=== PATIENT | female | born 1945 | race Two or more races ===

== ENCOUNTER 2021-03-03 10:49 | Emergency (ER) | payer OTHER ==
[~2021-03-03] VITALS: Ht 188 cm; Wt 86.6 kg
[2021-03-03] MEDS ORDERED: ELIQUIS5 MG PO (11:20)
[2021-03-03] MEDS ORDERED: DULOXETINE HCL60 MG PO (11:20)
[2021-03-03] MEDS ORDERED: MELATONIN3 M3 (11:20)
== END 2021-03-03 20:07 | disposition home or self-care (01) ==
LOC: ER 10:49
DX: N39.0 Urinary tract infection, site not specified (principal); R31.0 Gross hematuria

== ENCOUNTER 2021-03-27 11:59 | Emergency (ER) | payer OTHER ==
[~2021-03-27] VITALS: Ht 162.6 cm; Wt 99.8 kg
[~2021-03-27 11:59] MED LIST: DULOXETINE HCL60 MG PO; ELIQUIS5 MG PO; MELATONIN3 M3
[2021-03-27] MEDS ORDERED: OMEPRAZOLE20 MG PO (12:42)
[2021-03-27] MEDS ORDERED: MIRTAZAPINE7.5 MG PO (12:43)
[2021-03-27] MEDS ORDERED: FERROUS GLUCON PO (12:44)
[2021-03-27] MEDS ORDERED: KAPSPARGO SPRIN50 MG PO (12:46)
== END 2021-03-27 21:33 | disposition home or self-care (01) ==
LOC: ER 11:59
DX: R11.2 Nausea with vomiting, unspecified (principal); E86.0 Dehydration; N39.0 Urinary tract infection, site not specified; Z93.2 Ileostomy status

== ENCOUNTER 2021-03-29 11:15 | Inpatient (IN) | payer OTHER ==
[~2021-03-29] VITALS: Ht 165.1 cm; Wt 113.4 kg
[~2021-03-29 11:15] MED LIST changes: +FERROUS GLUCON PO; +KAPSPARGO SPRIN50 MG PO; +MIRTAZAPINE7.5 MG PO; +OMEPRAZOLE20 MG PO
--- NOTE | 2021-03-29 11:46 | NUR ---
SE RECIBE PTE LA CUAL LLEGA EN AMBULANCIA, ALERTA Y ORIENTADA EN PERSONA, EN COMPANIA DE FAMILIAR, EL CUAL REFIERE VOMITOS DESDE HOY EN LA MANANA COFFE GROUND. PTE LLEGA CON COLOSTOMIA. SE OBSERVA ABDOMEN DISTENDIDO. AL MOMENOT B/P NO AUDIBLES, SE NOTIFICA A DR GUSMAN QUIEN ORDENA COLOCARALA EN AREA DE CHEST PAIN, CONECTADA A MONITOR CARDIACO Y OXIMETRIA DE PULSO.
--- NOTE | 2021-03-29 12:46 | NUR ---
PACIENTE EVALUADA POR EL DR. GUSMAN QUIEN ORDENA [place] MEDICO. SE ORIENTA A FAMILAIR DE PACIENTE SOBRE [place] MEDICO Y SE EJECUTAN ORDENES MEDCIAS. SE UBICA EN UNIDAD DE CHEST PAIN, MISS Liang QUEZADA RN INSERTA NGT #[id number] POR FOSA NASAL RT, SE OBSERVA DRENANDO RESIDUAL GASTRICO COLOR COFFE BROWN. SE FIJA NGT Y SE COLOCA A SUCCION INTERMITENTE. SE CONECTA A TELEMETRIA. S/V 130/MIN, B/P 140/84 SAT O 2 EN 97%. PENDIENTE CONSULTA CON ANDRY VALVERDE.
[2021-04-14] MEDS ORDERED: PROTONIX40 MG PO (13:31)
[2021-04-14] MEDS ORDERED: INTESTINEX680 M1 PO (13:31)
[2021-04-14] MEDS ORDERED: INTEGRA PLUS C1 EACH PO (13:32)
[2021-04-14] MEDS ORDERED: AZO D-MANNOSE500 MG PO (13:32)
[2021-04-14] MEDS ORDERED: ELIQUIS2.5 MG PO (13:33)
[2021-04-14] MEDS ORDERED: KAPSPARGO SPRIN50 MG PO (13:34)
== END 2021-04-14 21:16 | disposition home or self-care (01) | DRG 389 ==
LOC: ER 11:15 → ICU 17:37 → MEDJ 04-11 19:18
PROVIDERS: ADMIT Internal Medicine; ATTEND Internal Medicine
PROC: BW21ZZZ Computerized Tomography (CT Scan) of Abdomen and Pelvis (ICD-10-PCS; 2021-03-29)
PROC: 4A033R1 Measurement of Arterial Saturation, Peripheral, Percutaneous Approach (ICD-10-PCS; 2021-03-29)
PROC: 05HY33Z Insertion of Infusion Device into Upper Vein, Percutaneous Approach (ICD-10-PCS; 2021-03-29)
PROC: B24BZZZ Ultrasonography of Heart with Aorta (ICD-10-PCS; 2021-03-29)
PROC: 30243K1 Transfusion of Nonautologous Frozen Plasma into Central Vein, Percutaneous Approach (ICD-10-PCS; principal; 2021-04-03)
PROC: 30243N1 Transfusion of Nonautologous Red Blood Cells into Central Vein, Percutaneous Approach (ICD-10-PCS; 2021-04-03)
PROC: B54DZZZ Ultrasonography of Bilateral Lower Extremity Veins (ICD-10-PCS; 2021-04-03)
PROC: 0DJ08ZZ Inspection of Upper Intestinal Tract, Via Natural or Artificial Opening Endoscopic (ICD-10-PCS; 2021-04-04)
PROC: BW2510Z Computerized Tomography (CT Scan) of Chest, Abdomen and Pelvis using Low Osmolar Contrast, Unenhanced and Enhanced (ICD-10-PCS; 2021-04-08)
PROC: B54PZZZ Ultrasonography of Bilateral Upper Extremity Veins (ICD-10-PCS; 2021-04-08)
PROC: 8E0ZXY6 Isolation (ICD-10-PCS; 2021-04-09)
DX: K56.699 Other intestinal obstruction unspecified as to partial versus complete obstruction (principal); N39.0 Urinary tract infection, site not specified; N17.8 Other acute kidney failure; K92.1 Melena; K92.2 Gastrointestinal hemorrhage, unspecified; E87.2 Acidosis; E87.0 Hyperosmolality and hypernatremia; D62 Acute posthemorrhagic anemia; D68.8 Other specified coagulation defects; E87.6 Hypokalemia; E86.0 Dehydration; I49.8 Other specified cardiac arrhythmias; D72.828 Other elevated white blood cell count; G30.8 Other Alzheimer's disease; F02.80 Dementia in other diseases classified elsewhere, unspecified severity, without behavioral disturbance, psychotic disturbance, mood disturbance, and anxiety; Z86.711 Personal history of pulmonary embolism; B95.62 Methicillin resistant Staphylococcus aureus infection as the cause of diseases classified elsewhere; Z20.822 Contact with and (suspected) exposure to COVID-19; Z79.01 Long term (current) use of anticoagulants; Z93.2 Ileostomy status; Z74.01 Bed confinement status